=== PATIENT | female | born 1975 | race Caucasian/White ===

== ENCOUNTER 2022-03-28 20:50 | Emergency (ER) | payer MEDICAID ==
[~2022-03-28] VITALS: Ht 162.6 cm; Wt 59.1 kg
--- NOTE | 2022-03-28 23:38 | NUR ---
Pt pink, no acute/resp distress. Bed in lowest position, wheels locked, rail 2/2 up. Will continue to monitor for acute changes and needs. Pt laying supine, able to reposition self PRN. Will continue to monitor for acute changes and needs. Pt disheveled, states she has scabies.
[2022-03-28] MEDS ORDERED: acetaminophen 325mg tablet PO ONE (23:40)
[2022-03-28] MEDS ORDERED: PERM60CR19 TOP (23:43)
[2022-03-28] MEDS ORDERED: bacitracin 15gm ointment TP ONE (23:45)
[2022-03-29 00:08] VITALS: BP 120/86
== END 2022-03-29 00:10 | disposition home or self-care (01) ==
LOC: EDBD 20:51 → ER 20:51
DX: S90.821A Blister (nonthermal), right foot, initial encounter (principal); X58.XXXA Exposure to other specified factors, initial encounter; Y93.89 Activity, other specified; Y92.89 Other specified places as the place of occurrence of the external cause; Y99.8 Other external cause status
CPT/HCPCS: 99283